=== PATIENT | male | born 1985 | race Caucasian/White ===

== ENCOUNTER → 2021-01-12 | Day surgery (SDC) | payer OTHER ==
[~2021-01-12] MED LIST: NOHOMEMEDICATIONS PO; NORCO5 PO
--- NOTE | ~2021-01-12 | OP ---
[facility] [address] [place] [address] OPERATIVE REPORT Name: TERRANCE ZHANG Room: [facility]#: [id number] Admission: 01/12/21 Attend Phys: Rohan Islas Discharge: Date of : 83 Report #: [id number] THIS REPORT FOR: cc: Elvis Bear MD, Anthony MD Patterson,Rohan Latham MD ~ DATE OF SURGERY: 01/12/2021 PREOPERATIVE DIAGNOSIS: Incarcerated umbilical hernia. POSTOPERATIVE DIAGNOSIS: Incarcerated umbilical hernia. OPERATION: Laparoscopic repair of incarcerated umbilical hernia with mesh. SURGEON: Rohan Islas MD ANESTHESIA: General. ESTIMATED BLOOD LOSS: Minimal. SPECIMENS: None. DESCRIPTION OF PROCEDURE: After informed consent was obtained, the patient was brought to the operating room and placed supine. SCDs were placed and working, preoperative antibiotics were administered, general anesthesia was induced. The abdomen was prepped and draped in the usual sterile fashion. A 5 mm incision was made in the left upper quadrant. A 5 mm trocar was placed under direct vision. Pneumoperitoneum was established. Left- and right-sided 5 mm trocars were placed. He had incarcerated preperitoneal fat. This was all carefully reduced. The hernia defect measured less than 1 cm. An 11 cm Bard Ventralight mesh was inserted. It was brought up to the abdominal wall and tacked with 30 absorbable tacks. I then placed a 2-0 Ethibond transfascial suture in the superior aspect of the mesh using a suture passer. The ports were removed under direct vision. The skin was closed with 4-0 Monocryl. Incisions were dressed with Steri-Strips. COMPLICATIONS: None. DISPOSITION: The patient was taken to recovery in satisfactory condition. By: [id number] Islas MD /nt
[2021-01-12 08:09] LABS: ABSOLUTE EOSINOPHILS 0.2 thou/uL (0.0-0.7); ABSOLUTE LYMPHOCYTES 1.7 thou/uL (0.8-5.3); ABSOLUTE MONOCYTES 0.5 thou/uL (0.0-1.2); ABSOLUTE NEUTROPHILS 3.1 thou/uL (1.6-8.1); BASOPHILS 0.5 %; HEMATOCRIT 49.2 % (42.0-52.0); LYMPHOCYTES 31.2 %; MCH 30.6 pg (26.0-34.0); MCHC 34.6 g/dL (28.0-37.0); MCV 88.4 fL (80.0-100.0); MONOCYTES 9.5 %; NUCLEATED RBCS 0 /100WBC; PLATELET COUNT* 164 thou/uL (150-400); POLYS 55.8 %; RBC 5.56 mil/uL (4.50-6.00); RDW-CV 15.1 % (10.5-14.5); WBC 5.5 thou/uL (4.0-11.0)
[2021-01-12 08:13] LABS: CALCIUM 8.7 mg/dL (8.5-10.1); CREATININE 1.4 mg/dL (0.6-1.3); POTASSIUM 3.9 mmol/L (3.5-5.1)
== END | disposition home or self-care (01) ==
LOC: M.SUR 07:12
PROVIDERS: Anesthesiology; ATTEND Surgery
DX: K42.0 Umbilical hernia with obstruction, without gangrene (principal); Z98.890 Other specified postprocedural states; Z79.891 Long term (current) use of opiate analgesic